=== PATIENT | female | born 1995 | race Caucasian/White ===

== ENCOUNTER 2020-10-24 06:30 | Emergency (ER) | payer OTHER ==
[~2020-10-24] VITALS: Ht 165.1 cm; Wt 59.1 kg
[2020-10-24] MEDS ORDERED: ACETAMINOPHEN 500 MG TABLET PO ONE (06:45)
[2020-10-24 07:36] VITALS: BP 115/77
== END 2020-10-24 07:59 | disposition home or self-care (01) ==
LOC: EMS 06:32 → EDSEX 06:32 → EMS 07:59
DX: S60.511A Abrasion of right hand, initial encounter (principal); M25.531 Pain in right wrist; V43.93XA Unspecified car occupant injured in collision with pick-up truck in traffic accident, initial encounter; Y93.89 Activity, other specified; Y92.488 Other paved roadways as the place of occurrence of the external cause; Y99.8 Other external cause status
CPT/HCPCS: 99284; 73090-TC; 73110-TC; Z7502; Z7610